=== PATIENT | female | born 1995 | race Caucasian/White ===

== ENCOUNTER 2017-02-04 02:23 | Emergency (ER) | payer OTHER ==
[~2017-02-04] VITALS: Ht 177.8 cm; Wt 98.8 kg
[2017-02-04 02:34] VITALS: TEMP 36.6; Ht 177.8 cm; Wt 98.8 kg
[2017-02-04] MEDS ORDERED: PARO1TAB27 PO (02:35)
[2017-02-04 02:59] LABS: BUN/CREATININE RATIO 20.2 (10-20); CALCIUM 8.7 mg/dl (8.5-10.1); CREATININE 0.78 mg/dl (0.60-1.20); POTASSIUM 3.3 mmol/L (3.5-5.1)
[2017-02-04 03:08] LABS: PREG INTERNAL NEGATIVE QC NEG CLEAR BACKGROUND; PREG INTERNAL POSITIVE QC POS CONTROL LINE
--- NOTE | 2017-02-04 05:57 | EMERGENCY ROOM VISIT NOTE ---
History Report prepared by Nikaibchristopher: Shaneka Dominguez Under the Supervision of: Dr. Niels Meléndez M.D. First contact with patient: 02:26 Chief Complaint: ALCOHOL OVERDOSE Stated Complaint: ALCOHOL OVERDOSE History of Present Illness The patient is a 21 year old female who presents to the Emergency Room with complaints of an episode of alcohol overdose occurring this evening. Per EMS, the patient was found on a park bench waiting for her friend to come pick her up. They state that while waiting the patient started vomiting all over herself. Source of History: EMS History Limited By: intoxication Onset: this evening Position: other (global) Quality: other (global) Timing: other (episode) Review of Systems ROS limited secondary to alcohol intoxication. Past Medical & Surgical Medical Problems: (1) No significant active problems Family History Patient reports no known family medical history. Social History Smoking Status: Former Smoker Alcohol Use: occasionally Marital Status: single Housing Status: lives with roommate Occupation Status: [employer] student Current/Historical Medications Scheduled Paroxetine (Paxil), 30 MG PO DAILY Allergies Coded Allergies: No Known Allergies (Unverified , 02/04/17) Physical Exam Vital Signs Date Time Temp Pulse Resp B/P (MAP) Pulse Ox O2 Delivery O2 Flow Rate FiO2 02/04/17 06:01 89 15 85/52 97 Room Air 02/04/17 05:49 84 02/04/17 05:01 86 13 117/74 100 Room Air 02/04/17 04:08 82 14 97/63 100 Room Air 02/04/17 03:40 87 12 100 Room Air 02/04/17 03:10 85 12 100 02/04/17 03:05 88 12 112/82 100 Room Air 02/04/17 02:34 Room Air 02/04/17 02:34 36.6 84 15 115/83 100 Room Air 02/04/17 02:32 87 Physical Exam GENERAL: Patient is heavily intoxicated. Slurred speech. Smells of alcohol. Covered in vomit. Well appearing and in no acute distress. HEAD: No evidence of Trauma. AT/NC EYES: Injected conjunctiva. Normal EOM. Pupils equal/reactive. ENT: Mucous membranes moist, no nasal congestion, . NECK: No step-offs, no adenopathy, no meningismus, trachea is midline. LUNGS: No dyspnea. Clear to auscultation and equal bilaterally. No wheeze, no rhonchi. HEART: Regular rate and rhythm. No murmurs, rubs, gallops appreciated. ABDOMEN: Soft, nontender, bowel sounds positive, no masses appreciated, no peritonitis. BACK: No midline tenderness, no CVA tenderness EXTREMITIES: Normal motion all extremities, no cyanosis, no edema. NEUROLOGIC: Intoxicated. Alert, oriented. No acute motor or sensory deficits, no focal weakness, cranial nerves grossly intact. SKIN: No rash, no jaundice, no diaphoresis. Medical Decision & Procedures Laboratory Results 02/04/17 02:35 Test 02/04/17 02:35 Anion Gap 10.0 mmol/L (3-11) Est Creatinine Clear Calc Drug Dose 142.8 ml/min Estimated GFR () 124.2 Estimated GFR (Non- 107.2 BUN/Creatinine Ratio 20.2 (10-20) Calcium Level 8.7 mg/dl (8.5-10.1) Human Chorionic Gonadotropin, Qual NEG (NEG) Ethyl Alcohol mg/dL 183.0 mg/dl (0-3) Laboratory results as reviewed by me. ED Course 0226: The patient was evaluated in room B12A. A complete history and physical exam was performed. 0427: I reevaluated the patient and she was sleeping. Medical Decision Differential: Alcohol Intoxication, Drug Intoxication, Electrolyte Abnormality, Trauma, Intracranial Event, Toxicological, Excited Delirium, Serotonin Syndrome , amongst other pathologies entertained. 21 yr old intoxicated female brought in by EMS after being found sitting on a bench [place] vomiting on herself. Patient with no evidence nor history for trauma. Protecting airway and breathing comfortably throughout ED stay. EtOH positive. Monitored and discharged when awake, alert, oriented and denies any complaints. Impression Primary Impression: Alcohol abuse Additional Impressions: Hypokalemia Alcohol intoxication Scribe Attestation The scribe's documentation has been prepared under my direction and personally reviewed by me in its entirety. I confirm that the note above accurately reflects all work, treatment, procedures, and medical decision making performed by me. Departure Information Referrals [facility] (PCP) Patient Instructions My [facility] Additional Instructions You were evaluated in emergency department for intoxication. This is a sign of Alcohol Abuse and should not be taken lightly. You had a blood alcohol level that was significantly elevated. Over the next 24 hours keep well hydrated and eat light meals. Don't drink any more alcohol. This is important. Please discuss this visit with your Primary Care Provider, [facility] and/or your loved ones. Your Potassium was slightly on the low side. This is likely due to vomiting. Eating potassium rich foods should fix this. Unless an exceptional circumstance, the Hospital DOES NOT contact anyone DURING your visit, nor is your Protected Medical Information released to anyone without your approval/request. This means we do not contact your Parents, the Police, etc. However, you will likely receive a bill from the Hospital and/or your Insurance company, which will usually be sent to the Primary Policy [place] (often one's Parents). Furthermore, as a student, your visit report will likely be sent to [facility] as your primary care provider, unless other Provider listed. If your incident was on campus, or if the Police were involved, they will often contact the University to make them aware of what happened. Often this will result in you being required to take Alcohol Education classes (ie BASICS class) . Please see information given to you at discharge regarding contact for this. If the Police were involved you will likely be cited for public intoxication. Please contact either [facility] Police or the [place] Police for further information. Call 911 or return to Emergency Department if you develop: Passing out, difficulty breathing, many episodes of vomiting, blood in vomit or stool, abdominal pain, fevers, or other severe symptoms. We are always here to help if you feel you need further evaluation or treatment. Problem Qualifiers
[2017-02-04 09:55] VITALS: BP 120/77; PULSE 110; O2SAT 97
== END 2017-02-04 09:58 | disposition home or self-care (01) ==
LOC: EDBD 02:23 → C.EDB 02:24
DX: F10.120 Alcohol abuse with intoxication, uncomplicated (principal); E87.6 Hypokalemia; Z87.891 Personal history of nicotine dependence; Z79.899 Other long term (current) drug therapy; Y90.6 Blood alcohol level of 120-199 mg/100 ml